=== PATIENT | female | born 1990 | race Caucasian/White ===

== ENCOUNTER 2017-12-05 18:34 | Emergency (ER) | END 2017-12-05 23:17 | disposition home or self-care (01) ==

== ENCOUNTER 2018-06-13 17:55 | Outpatient (CLI) | END 2018-06-13 18:53 | disposition home or self-care (01) ==

== ENCOUNTER 2018-07-10 23:45 | Inpatient (IN) | END 2018-07-13 18:45 | disposition home or self-care (01) | DRG 778 ==

== ENCOUNTER 2018-08-01 20:23 | Inpatient (IN) | END 2018-08-04 15:10 | disposition home or self-care (01) | DRG 807 ==